=== PATIENT | male | born 2000 ===

== ENCOUNTER 2024-08-20 10:07 | Outpatient (CLI) | payer OTHER ==
[2024-08-20 11:26] LABS: HEMATOCRIT 45.8 % (39.0-48.0); MEAN CELL VOLUME 89.9 fL (80.0-100.00); MEAN CORPUSCULAR HEMOGLOBIN 31.4 pg (27.00-32.0); PLATELET COUNT 209 K/uL (150-450); RED CELL DISTRIBUTION WIDTH 12.9 % (11.5-14.5)
[2024-08-20 11:37] LABS: PH,URINE 6.5 (5.0-8.0); URINE APPEARANCE Clear; URINE BILIRRUBIN Negative (NEGATIVE); URINE BLOOD Negative; URINE COLOR Yellow; URINE GLUCOSE Negative (NEGATIVE); URINE KETONE Negative (NEGATIVE); URINE LEUKOCYTE Negative; URINE NITRATE Negative; URINE PROTEIN Negative (NEGATIVE)
[2024-08-20 11:41] LABS: URINE BACTERIA 4.8 uL (0.0-1933); URINE RBC 5.5 uL (0.0-20.8)
[2024-08-20 11:45] LABS: URINE EPITHELIAL CELLS 0.7 uL (0.0-38.8); URINE WBC 1.4 uL (0.0-23.2)
[2024-08-20 11:53] LABS: COL EPI 124 SECONDS (82-175)
[2024-08-20 12:03] LABS: PARTIAL THROMBOPLASTIN TIME 31.3 SECONDS (22.0-34.0); PROTHROMBIN TIME 10.9 SECONDS (9.0-11.5)
[2024-08-20 12:17] LABS: BILIRUBIN TOTAL 0.68 mg/dL (0.3-1.2); CALCIUM 9.6 mg/dL (8.5-10.1); CREATININE SERUM 0.79 mg/dL (0.70-1.30); GFR 122.65; GLOBULINA 2.9 G/DL (2.4-3.5); POTASSIUM 4.23 mEq/L (3.5-5.1); TOTAL PROTEIN 6.9 gm/dL (6.4-8.2)
== END 2024-08-20 13:37 | disposition home or self-care (01) ==
LOC: RAD 10:07
PROVIDERS: ATTEND Orthopaedic Surgery
DX: I10 Essential (primary) hypertension (principal); D68.8 Other specified coagulation defects; N39.0 Urinary tract infection, site not specified; E11.8 Type 2 diabetes mellitus with unspecified complications; Z76.89 Persons encountering health services in other specified circumstances

== ENCOUNTER 2024-09-04 05:50 | Day surgery (SDC) | payer OTHER ==
[2024-09-04] MEDS ORDERED: BUPIVACAINE HCL 30 ML VIAL IJ ONE (09:00)
[2024-09-04] MEDS ORDERED: EPINEPHRINE HCL/PF 1 MG/ML AMPUL IR ONE (09:00)
[2024-09-04] MEDS ORDERED: CEFAZOLIN SODIUM 1,000 MG VIAL IV SCH (09:00)
== END 2024-09-04 16:50 | disposition home or self-care (01) ==
LOC: CIR.AMB 05:50
PROVIDERS: ATTEND Orthopaedic Surgery
DX: S83.511A Sprain of anterior cruciate ligament of right knee, initial encounter (principal); D16.21 Benign neoplasm of long bones of right lower limb; D49.2 Neoplasm of unspecified behavior of bone, soft tissue, and skin; J45.909 Unspecified asthma, uncomplicated
CPT/HCPCS: 29888; 27355; L8699